=== PATIENT | female | born 1955 | race Caucasian/White ===

== ENCOUNTER 2016-11-09 11:53 | Day surgery (SDC) | payer MEDICARE, OTHER ==
[~2016-11-09 11:53] MED LIST: ALBUTEROL0.083 % INH; ASA5GR PO; ASAB PO; BENTYL10 PO; BUSPIRONE7.5 MG PO; CYMBALTA30 PO; FARXIGA5 PO; GLUCOPHAGE1000 MG PO; INVOKANA100 MG PO; KLOR-CON M2020 MEQ PO; L40 PO; LEVAQUIN750 MG PO; LIPITOR40 PO; MOBIC15 MG PO; NEUR100 PO; NEUR300 PO; NEXIUM40 PO; NIFEDIPINE PO; NORCO1 TA2 PO; PEP20 PO; PRILOSEC40 MG PO; PRIN20 PO; SUCR PO; TESSALON200 MG PO; X25 PO; Z100 PO; ZANAFLEX 4 MG TA4 MG PO; ZOCOR20 PO
== END 2016-11-09 17:01 | disposition home or self-care (01) ==
LOC: IMGHOLD 11:53 → CDU1 13:15
DX: M51.36 Other intervertebral disc degeneration, lumbar region (principal); M54.5 Low back pain; I10 Essential (primary) hypertension; M10.9 Gout, unspecified; E11.9 Type 2 diabetes mellitus without complications; E66.9 Obesity, unspecified; G62.9 Polyneuropathy, unspecified
CPT/HCPCS: 72148; 80048; 82962; 85014; 85018; 93005; J2405; J3010